=== PATIENT | female | born 1995 | race Caucasian/White ===

== ENCOUNTER 2020-08-10 11:29 | Emergency (ER) | payer OTHER, SELFPAY ==
[2020-08-10 11:33] VITALS: BP 125/83; PULSE 67; RESP 16; TEMP 36.4; O2SAT 99
--- NOTE | 2020-08-10 11:51 | ED.BURNSMOKE ---
HPI - Burn/Smoke Inhalation General Chief complaint: Burn/Smoke Inhalation Stated complaint: r hand burn Source: patient and RN notes reviewed History of Present Illness HPI Narrative: The right-handed patient, previously mostly healthy with immunizations UTD, presents with burn. 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 Symptoms are moderate, involving a palm sized area with about 2 blisters. Pain symptoms are mild to moderate, worse with motion, better with rest or cold water/compresses. Related Data Home Medications Medication Instructions Recorded Confirmed methylphenidate HCl 10 mg PO DAILY 08/10/20 08/10/20 sertraline 100 mg PO DAILY 08/10/20 08/10/20 Allergies Allergy/AdvReac Type Severity Reaction Status Date / Time No Known Allergies Allergy Verified 08/10/20 11:34 Review of Systems Review of Systems: Narrative: General/Constitutional: No weight loss,fever Eyes: N0: Redness,discharge Ears/Nose/Throat: No: Epistaxis,ear discharge Respiratory: Denies: Hemoptysis Gastrointestinal: No Vomiting, Bleeding-rectal Skin: No Lumps, eruption Neurologic: No Focal Weakness,Sz Hematologic: Denies: Petechiae/Purpura Psychiatric: No: Suicida ideationl All Other Systems: Reviewed and Negative PMF Comments At time of signature, agree with nursing past medical, surgical, social and family history. There is no relevant family history pertinent to the presenting complaint Exam Narrative: Exam Narrative: General Appearance: Well appearing, Conjunctiva clear Ears: External ear normal, Auditory canal normal Nose: Normal nose, Nares clear Mouth/Throat: Normal appearing, Normal lips Neck: Supple Respiratory: Airway patent, No respiratory distress Skin: 1% palm sized ,mostly first-degree burn of these extensor hand centered along the knuckles with occasional 1 cm blisters ; warm, Dry, Normal color MS hand: Normal strength -mostly intact, limited flexion/extension by pain), Tenderness -extensor hand, with mild decreased ROM), Scant swelling -knuckles, Neurological: A&O x3, , Normal affect Course Vital Signs Vital signs: Vital Signs Temperature 97.6 F 08/10/20 11:33 Pulse Rate 67 08/10/20 11:33 Respiratory Rate 16 08/10/20 11:33 Blood Pressure 125/83 08/10/20 11:33 Pulse Oximetry 99 08/10/20 11:33 Temperature 97.6 F 08/10/20 11:33 Pulse Rate 67 08/10/20 11:33 Respiratory Rate 16 08/10/20 11:33 Blood Pressure 125/83 08/10/20 11:33 Pulse Oximetry 99 08/10/20 11:33 Discharge Plan Discharge Clinical Impression: Burn of hand, right Qualifiers: Encounter type: initial encounter Burn of hand location: multiple fingers excluding thumb Burn degree: partial thickness (2nd degree) Qualified Code(s): T23.231A - Burn of second degree of multiple right fingers (nail), not including thumb, initial encounter Patient Disposition: Home, Self-Care Condition: Improved Instructions: Second-Degree Burn (ED) Prescriptions: New tramadol 50 mg tablet 50 mg PO TID PRN (Reason: pain) Qty: 15 RF: 1 acetaminophen-codeine 300-30 mg tablet 1 tablet PO HS PRN (Reason: pain) Qty: 10 RF: 0 bacitracin zinc 500 unit/gram ointment 1 applic topical BID Qty: 28 RF: 0 No Action methylphenidate HCl 10 mg Tablet 10 mg PO DAILY RF: 0 sertraline 100 mg Tablet 100 mg PO DAILY RF: 0 Follow-up/Referrals: PHYSICIAN,IDENTITY ACCESS MANAGEMENT ARCHITECT [Primary Care Provider] - Stand Alone Forms: Work/School Release IP
== END 2020-08-10 12:03 | disposition home or self-care (01) ==
PROVIDERS: Emergency Provider Emergency Medicine
DX: T23.231A Burn of second degree of multiple right fingers (nail), not including thumb, initial encounter (principal); F98.8 Other specified behavioral and emotional disorders with onset usually occurring in childhood and adolescence; F32.9 Major depressive disorder, single episode, unspecified
CPT/HCPCS: 99213; G0463

== ENCOUNTER 2022-11-01 18:11 | Emergency (ER) | payer OTHER, SELFPAY ==
--- NOTE | ~2022-11-01 | XR_ITS ---
EXAM: XR foot LT min 3V DATE: 11/01/2022 19:45 HISTORY: UNEXPLAINED SWELLING IN LT FOOT X 1 DAY. PAIN. . COMPARISON: None available. FINDINGS: Normal mineralization. No fracture or dislocation. No lytic or blastic lesion. Joint space s are maintained. Prominent os trigonum. Minimal Achilles enthesopathy. No erosion or periosteal curiel ge. Soft tissues within normal limits. IMPRESSION: No acute osseous finding in the left foot. Reviewed, dictated and finalized at location K.
[2022-11-01 18:26] VITALS: BP 120/84; PULSE 75; RESP 18; TEMP 36.7; O2SAT 100
--- NOTE | 2022-11-01 18:27 | ED.LOWEXIN ---
HPI - Extremity Injury (Lower) General Chief Complaint: Extremity Problem,Nontraumatic Stated Complaint: L FOOT PAIN/SWELLING/L ARM PAIN Time Seen by Provider: 11/01/22 18:28 Source: patient and RN notes reviewed Mode of arrival: ambulatory Limitations: no limitations History of Present Illness HPI Narrative: 27-year-old female presents concern for 2 day history of left foot pain and swelling with no known injury. She also reports 3 day history of mild left shoulder pain 09/03. She reports the shoulder joint is aching in the elbows aching. She denies any injury in that extremity. She denies redness, warmth in the shoulder, elbow or foot. She reports her foot is painless at rest, hurts when she walks on it or when she pushes on the bottom of the foot. She denies any history of similar pain. She denies left calf pain, warmth, swelling, tenderness. She denies calf pain with extension or flexion of the foot/amkle. Denies chest pain or shortness of breath MD complaint: other (foot pain) Related Data Home Medications Medication Instructions Recorded Confirmed No Home Medications 11/01/22 11/01/22 Allergies Allergy/AdvReac Type Severity Reaction Status Date / Time No Known Allergies Allergy Verified 11/01/22 18:29 Review of Systems Review of Systems: CONSTITUTIONAL: Denies malaise, chills, sweats, or fever. CHEST: She denies chest pain, shortness of breath, palpitations SKIN: Denies rash or itching, open skin, laceration, abrasion, redness, warmth MUSCULOSKELETAL: Reports left foot falling and pain. Reports mild left shoulder and elbow pain NEUROLOGIC: Denies numbness, weakness All systems reviewed & are unremarkable except as noted in HPI and below PMFSH Comments At time of signature, agree with nursing past medical, surgical, social and family history. There is no relevant family history pertinent to the presenting complaint Exam Narrative: GENERAL: Well-appearing, well-nourished, and in no acute distress. HEAD: Normocephalic, atraumatic. EYES: PERRLA, conjunctivae clear NECK: Supple. CHEST: Speaks in full sentences. No respiratory distress. HEART: Regular rate and rhythm. Normal and equal peripheral pulses. EXTREMITIES: Left upper extremity has normal strength and sensation, normal range of motion. No edema or ecchymosis. 5/5 strength with elbow flexion and extension, shoulder abduction, adduction. Normal sensation with sensitivity to light touch and pain. Mid shoulder joint tenderness. No open wounds, no skin tenting, no devitalized tissue or atrophy, no trophic changes, no obvious deformity, alignment normal, nearby joints and structures intact. Distal pulses palpable and equal bilaterally, skin warm, dry, pink. Capillary refill less than 3 seconds. Left ankle and foot, digits have normal strength and sensation, normal range of motion. Mild foot edema without erythema or ecchymosis. 5/5 strength with ankle in digit flexion and extension. Normal sensation with sensitivity to light touch and pain. Pedal point tenderness in the ball of the foot below the 1st digit. No open wounds, no skin tenting, no devitalized tissue or atrophy, no trophic changes, no obvious deformity, alignment normal, nearby joints and structures intact. Distal pulses palpable and equal bilaterally, skin warm, dry, pink. Capillary refill less than 3 seconds. SKIN: Warm, dry, no rash. NEURO: Alert and oriented x3. PSYCH: Normal mood and affect Course Course Emergency Course: Due to technical difficulties, unable to see x-ray result tonight. Will discharge patient with an Hernan wrap and will follow up with her tomorrow regarding her x-ray results and further instructions. Patient is aware of diagnosis, understands and agrees to treatment plan. Anticipatory guidance given. Patient agrees to follow-up as directed and is aware of reasons to seek care at the emergency department. Portions of this record may have been created with voice recognition
--- NOTE | 2022-11-01 18:47 | PC.NURSE ---
1845- pt is agreeable to go to the [facility] location to have xray of foot, since our services here are unavailable at present. pt ambulatory to private vehicle without assist, and bearing full weight to extremity. care turned over to Sandrita Delgado NP, and Luz RAO, report given to both as they await pt arrival. condition- stable and ambulatory.
== END 2022-11-01 20:01 | disposition home or self-care (01) ==
PROVIDERS: Emergency Provider Nurse Practitioner Family
DX: M79.89 Other specified soft tissue disorders (principal)
CPT/HCPCS: 73630; 99213; G0463

== ENCOUNTER 2022-11-07 14:48 | Emergency (ER) | payer OTHER, SELFPAY ==
[2022-11-07 14:53] VITALS: BP 130/57; PULSE 89; RESP 16; TEMP 36.6; O2SAT 100
--- NOTE | 2022-11-07 15:27 | ED.GENADULT ---
HPI - General Adult General Chief complaint: Urogenital-Female Stated complaint: Urinary Problem/Vaginal Issue Source: patient Mode of arrival: ambulatory Limitations: no limitations History of Present Illness HPI narrative: Patient presents for evaluation of urinary symptoms for last 2 days. She reports urinary frequency, urgency, hesitancy, dysuria, hematuria and vaginal itching. 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 She states her urinary symptoms improved upon completing antibiotics here yesterday but returned today. She has not had any improvement in vaginal itching. Denies any vaginal bleeding or discharge. LMP 10/22/2022. Not on contraception. Sexually active with 1 male partner. She has experienced some hot flashes and chills. No objective fever, nausea, and vomiting. She has experienced some suprapubic pressure. Related Data Allergies Allergy/AdvReac Type Severity Reaction Status Date / Time No Known Allergies Allergy Verified 11/01/22 18:29 Review of Systems Review of Systems: CONSTITUTIONAL: Reports hot flashes and chills. Denies objective fever. EYES: Denies visual changes, redness, or discharge. ENT: Denies rhinorrhea, congestion, sore throat, or otalgia. CARDIOVASCULAR: Denies chest pain, palpitations, or edema. RESPIRATORY: Denies cough or dyspnea. GASTROINTESTINAL: Reports suprapubic pressure. Denies nausea, vomiting, or diarrhea. GENITOURINARY: Reports urinary frequency, urgency, dysuria, hematuria(improved), and vaginal itching SKIN: Denies rash or itching. MUSCULOSKELETAL: Denies back pain, joint pain, or myalgia. NEUROLOGIC: Denies headache, numbness, dizziness, or weakness. PSYCHIATRIC: Denies anxiety or depression. [facility] Past Medical History Medical History No pertinent past medical history Surgical History Surgical History No pertinent past surgical history Family History Family History Mother Family history non-contributory Social History Social History Smoking status: Never smoker Substance use: never Additional living arrangements comments: Lives with boyfriend Gender identity (if verbalized by the patient): Female Sexual Orientation (if Verbalized by the Patient): Straight or Heterosexual Spiritual care concerns: No Exam Narrative: GENERAL: Well-appearing, well-nourished, and in no acute distress. HEAD: Normocephalic, atraumatic. EYES: PERRLA and EOMI. ENT: Nares clear, no rhinorrhea or epistaxis. Mucous membranes moist. Oropharynx without tonsillar hypertrophy exudate or other lesions. Bilateral TMs pearly willis nonbulging NECK: Supple. No adenopathy or masses. No carotid bruits or JVD CHEST: Clear to auscultation. No respiratory distress. No wheezes rales or rhonchi HEART: Regular rate and rhythm. No murmur heard. Normal peripheral pulses. ABDOMEN: Soft, nontender, nondistended, normal active bowel sounds. EXTREMITIES: Normal range of motion. No edema. SKIN: Warm, dry, no rash. GENITAL: There is several scarred lesions noted to the external labia. No adnexal tenderness. No cervical motion tenderness. Scant amount of thick clumpy yellow discharge at cervical os NEURO: No focal deficits. Alert and oriented x3. PSYCH: Normal mood and affect. Course Course Emergency Course: This is a 27-year-old female presented for evaluation of urinary symptoms and vaginal itching. Other considerations to vaginal candidiasis were considered due to lack of clinical response to Diflucan, however physical exam was not concerning. Treat UTI with Macrobid and will give her another script for Diflucan, 1 tablet which she can
== END 2022-11-07 15:48 | disposition home or self-care (01) ==
PROVIDERS: Emergency Provider Nurse Practitioner
DX: N39.0 Urinary tract infection, site not specified (principal); B37.31 Acute candidiasis of vulva and vagina
CPT/HCPCS: 81003; 87070; 87086; 87491; 87591; 87661; 99214; G0463